=== PATIENT | female | born 1990 | race Caucasian/White ===

== ENCOUNTER 2022-10-10 15:40 | Inpatient (IN) | payer BC ==
[~2022-10-10] VITALS: Ht 167.6 cm; Wt 65.8 kg
[2022-10-10] MEDS ORDERED: IV NORMAL SALINE 1000 ML BAG IV ONE (16:15)
--- NOTE | 2022-10-10 16:25 | NUR ---
Pt arrived in the ED w/ c/o tingling sensation on R side of the body and fall 2 days ago. Seen by Dr. Nunez for LILIYA. Addendum: 10/10/22 at 1648 by JOHNY Pt arrived in the ED w/ c/o tingling sensation, numbness and weakness on R side of the body resulting to fall 2 days ago. AOx3. Seen by Dr. Nunez for LILIYA.
[2022-10-10 16:29] LABS: *BILIRUBIN,URIN NEGATIVE (NEGATIVE); *BLOOD, URINE NEGATIVE (NEGATIVE); *CLARITY,URINE CLEAR (CLEAR); *COLOR,URINE YELLOW (YELLOW); *KETONES,URINE NEGATIVE (NEGATIVE); *UROBILINOGEN,URINE 0.2 E.U./dl (NORMAL); LEUKOCYTE ESTERASE ,URINE NEGATIVE (NEGATIVE); NITRITE, URINE NEGATIVE (NEGATIVE); UGLUCOSE NEGATIVE (NEGATIVE)
[2022-10-10 16:30] LABS: HEMATOCRIT 42.2 % (31.2-41.9); MEAN CORPUSCULAR HEMOGLOBIN 31.9 uug (24.7-32.8); MEAN CORPUSCULAR VOLUME 91.8 fL (75.5-95.3); PLATELET COUNT (AUTO) 252 K/uL (179-408)
[2022-10-10 16:32] LABS: *URINE HCG, QUAL NEG (NEGATIVE)
--- NOTE | 2022-10-10 16:34 | NUR ---
"Plan to admit" per Dr Nunez. ER registration/admitting staff Jose notified.
[2022-10-10 16:42] LABS: CREATININE 0.9 mg/dL (0.6-1.3); POTASSIUM 4.2 mmol/L (3.5-5.1)
[2022-10-10 16:48] LABS: BILIRUBIN,DIRECT 0.2 mg/dL (0.0-0.2); BILIRUBIN,TOTAL 0.8 mg/dL (0.2-1.0)
--- NOTE | 2022-10-10 17:22 | NUR ---
Neuro consult with Dr. Powers done yb Addendum: 10/10/22 at 1724 by JOHNY Neuro consult with Dr. Powers done by Dr. Jacinda Nunez.
--- NOTE | 2022-10-10 18:36 | NUR ---
Pt will be admitted under the medical care of Juan Ordaz NP, to be assigned Telemetry unit in room 317.
--- NOTE | 2022-10-10 18:44 | NUR ---
Report given to Karen MERCHANT.
[2022-10-10] MEDS ORDERED: ACETAMINOPHEN 325 MG TABLET PO PRN (19:15)
[2022-10-10] MEDS ORDERED: MAG HYDROX/AL HYDROX/SIMETH 30 ML LIQUID UDC PO PRN (19:15)
--- NOTE | 2022-10-10 19:17 | NUR ---
Endorsed to Alba GARCIA
[2022-10-10] MEDS ORDERED: ENOXAPARIN SODIUM 40 MG/0.4 ML DISP.SYRIN SQ SCH (19:51)
--- NOTE | 2022-10-10 20:27 | NUR ---
PATIENT WAS BROUGHT TO TELE UNIT FROM ER. PATIENT WANTS TO LEAVE AGAINST MEDICAL ADVICE. DR. NAVARRO AT BEDSIDE VISITED THE PATIENT, RISKS AND BENEFITS EXPLAINED TO PATIENT. EDUCATION PROVIDED TO PATIENT FOR EMERGENCY. AMA FORM SIGNED BY PATIENT AND PLACED IN PATIENT'S CHART. DR. ANVARRO IS AWARE AND PRESENT AT UNIT WHEN PATIENT LEFT.
[2022-10-10] MEDS ORDERED: SIMVASTATIN 20 MG TABLET PO SCH (21:00)
[2022-10-10] MEDS ORDERED: BLOOD SUGAR DIAGNOSTIC 1 EACH STRIP VI SCH (21:00)
[2022-10-11] MEDS ORDERED: BLOOD SUGAR DIAGNOSTIC 1 EACH STRIP VI SCH
[2022-10-11] MEDS ORDERED: PANTOPRAZOLE SODIUM 40 MG VIAL IV SCH (09:00)
[2022-10-11] MEDS ORDERED: ASPIRIN EC 81 MG TABLET.DR PO SCH (09:00)
[2022-10-13 09:06] LABS: *ANTI-SCLERODERMA-70 AB <0.2 AI (0.0-0.9); *SJOGREN'S ANTI-SS-A <0.2 AI (0.0-0.9); *SJOGREN'S ANTI-SS-B <0.2 AI (0.0-0.9); *SMITH ANTIBODIES <0.2 AI (0.0-0.9); ANTI-DNA(DS) AB, QN <1 IU/mL (0-9)
== END 2022-10-10 20:25 | disposition left against medical advice (07) | DRG 93 ==
LOC: ER 15:40 → TELE3 19:43
PROVIDERS: ADMIT Nurse Practitioner Acute Care; ATTEND Nurse Practitioner Acute Care
DX: R20.2 Paresthesia of skin (principal); R53.1 Weakness; I10 Essential (primary) hypertension; R74.01 Elevation of levels of liver transaminase levels; Z20.822 Contact with and (suspected) exposure to COVID-19
CPT/HCPCS: 36415; 70450; 71045; 82747; 84443; 84484; 84703; 85014; 85025; 85651; 85730; 86038; 86140; 86592; 87806; 93005; A4663; G0378; J7040